=== PATIENT | female | born 2000 | race Caucasian/White ===

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

== ENCOUNTER 2021-07-11 17:32 | Emergency (ER) | payer MEDICAID, SELFPAY ==
[2021-07-11 17:33] VITALS: BP 117/75; PULSE 116; RESP 16; TEMP 37.2; O2SAT 99; BMI 18.3
[2021-07-11 18:39] LABS: Microscopic, Urine URINE MICROSCOPIC (MICROSCOPIC)
[2021-07-11 18:42] LABS: Basophils # 0.1 K/mm3 (0-0.2); Basophils % 2.3 % (0.1-2.0); Eosinophils # 0.1 K/mm3 (0.0-0.4); Eosinophils % 2.4 % (0.1-12.0); Hematocrit 40.2 % (37.0-47.0); Hemoglobin 13.1 g/dL (12.2-16.2); Lymphocytes # 1.7 K/mm3 (0.7-4.5); Lymphocytes % 30.5 % (10-50); Mean Corpuscular HGB Conc 32.7 g/dL (31.8-35.4); Mean Corpuscular Hemoglobin 28.7 pg (27.0-31.2); Mean Corpuscular Volume 87.9 fl (81-99); Mean Platelet Volume 7.8 fl (7.4-10.4); Monocytes # 0.5 K/mm3 (0.1-1.0); Monocytes % 9.7 % (1.7-9.3); Neutrophils % 55.1 % (37.0-80.0); Platelet Count 355 K/mm3 (142-424); Red Blood Count 4.58 M/mm3 (4.20-5.40); Red Cell Distribution Width 13.3 % (11.5-17.5); White Blood Count 5.4 K/mm3 (4.5-13.0)
[2021-07-11 18:43] LABS: Chloride 106 mmol/L (98-107); Potassium 3.3 mmoL/L (3.5-5.1); Sodium 139 mmol/L (136-145)
[2021-07-11 18:45] LABS: Alanine Aminotransferase 13 U/L (12-78); Aspartate Amino Transferase 24 U/L (14-36); Blood Urea Nitrogen 5 mg/dl (7-17); Creatinine Clearance Estimated 107 mL/min (50-200); Estimated Glomerular Filt Rate 127 ml/min (>60); GFR (African American) 154 ML/MIN (>60)
[2021-07-11 18:46] LABS: Albumin Level 4.6 g/dl (3.5-5.0); Albumin/Globulin Ratio 1.8 (1.1-1.8); Alkaline Phosphatase 50 U/L (38-126); Anion Gap 10.3 mEq/L (5-15); Bilirubin,Total 0.5 mg/dl (0.2-1.3); Calcium 8.9 mg/dl (8.4-10.2); Carbon Dioxide 26 mmol/L (22.0-30.0); Globulin 2.6 g/dL (1.3-3.2); Glucose 85 mg/dl (74-100); Total Protein,Serum 7.2 g/dl (6.3-8.2)
[2021-07-11 18:50] LABS: Urine Pregnancy, HCG Qual. Negative (Negative)
[2021-07-11 19:32] LABS: Appearance,Urine CLEAR (Clear); Bilirubin,Urine Negative (Negative); Blood, Urine Negative (Negative); Color,Urine YELLOW (Yellow); Glucose,Urine (UA) Negative (Negative); Ketones,Urine Negative (Negative); Leukocyte Esterase,Urine Negative (Negative); Nitrate,Urine Negative (Negative); PH,Urine 6.5 (5.0-8.5); Protein,Urine Negative (Negative); Specific Gravity, Urine <= 1.005 (1.005-1.030); Urobilinogen,Urine 0.2 EU/dl (0.2)
[2021-07-11 19:34] LABS: Squamous Epithelial Cell,Urine Occasional #/hpf (0-5); WBC,Urine Occasional #/hpf (0-3)
--- NOTE | 2021-07-11 19:41 | HMH.EDGENADL ---
ED Disposition Clinical Impression: Syncope and collapse Disposition: Home, Self-Care Condition on Discharge: Good Instructions: DI for Syncope in Adults (Fainting) Additional Instructions: Call Dr. Arvizu's office tomorrow to set up follow-up appointment. Call your bilingual social worker tomorrow to set up follow-up appointment. Return to the emergency department if worsening symptoms or fainting returns. Referrals: Alan Arvizu MD [Primary Care Provider] - - Critical Care Critical Care Time: No Attestation: On 07/11/21, the high probability of a clinically significant, sudden or life threatening deterioration of the following system(s) required my full and direct attention, intervention and personal management. The time I documented below is in addition to time spent performing reported procedures but includes the following listed in this critical care notation. Medical Decision Making - Liam Inquiry Pt receiving controlled substance: No Vital Signs: 07/11/21 17:33 Temperature 98.9 F Temperature Source Oral Pulse Rate [Left Radial] 116 H Respiratory Rate 16 Blood Pressure [Left Arm] 117/75 Blood Pressure Mean [Left Arm] 89 Blood Pressure Source [Left Arm] Automatic Cuff Blood Pressure Position [Left Arm] Sitting 02 Sat by Pulse Oximetry 99 Oxygen Delivery Method Room Air - Lab Data Lab Results 07/11/21 18:10: Urine HCG, Qual Negative 07/11/21 18:20: Urine Color Yellow, Urine Appearance Clear, Urine pH 6.5, Ur Specific Labelle <= 1.005, Urine Protein Negative, Urine Glucose (UA) Negative, Urine Ketones Negative, Urine Blood Negative, Urine Nitrate Negative, Urine Bilirubin Negative, Urine Urobilinogen 0.2, Ur Leukocyte Esterase Negative, Urine RBC None, Urine WBC Occasional, Ur Squamous Epith Cells Occasional, Urine Bacteria None 07/11/21 18:20: WBC 5.4, RBC 4.58, Hgb 13.1, Hct 40.2, MCV 87.9, MCH 28.7, MCHC 32.7, RDW 13.3, Plt Count 355, MPV 7.8, Neut % (Auto) 55.1, Lymph % (Auto) 30.5, [place] % (Auto) 9.7 H, Eos % (Auto) 2.4, Baso % (Auto) 2.3 H, Neut # (Auto) 3.0, Lymph # (Auto) 1.7, [place] # (Auto) 0.5, Eos # (Auto) 0.1, Baso # (Auto) 0.1 07/11/21 18:20: Sodium 139, Potassium 3.3 L, Chloride 106, Carbon Dioxide 26, Anion Gap 10.3, BUN 5 L, Creatinine 0.60, Estimated Creat Clear 107, Estimated GFR 127, Est GFR ( Amer) 154, Glucose 85, Calcium 8.9, Total Bilirubin 0.5, AST 24, ALT 13, Alkaline Phosphatase 50, Total Protein 7.2, Albumin 4.6, Globulin 2.6, Albumin/Globulin Ratio 1.8 Result diagrams: 07/11/21 18:20 07/11/21 18:20 Orders (Tests/Meds): ED MEDICATIONS Generic Name Dose Route Start Last Admin Trade Name Freq PRN Reason Stop Dose Admin Sodium Chloride 10 ml 07/11/21 18:29 Sodium Chloride 0.9% 10ml Flush Syringe IV 08/10/21 18:28 NEEDED PRN Maintain IV Site Discontinued Medications Generic Name Dose Route Start Last Admin Trade Name Freq PRN Reason Stop Dose Admin Sodium Chloride 1,000 mls @ 999 mls/hr 07/11/21 18:32 07/11/21 18:34 Sod Chlor 0.9% 1000ml Bag IV 07/11/21 19:32 999 mls/hr .Q1H1M ONE Administration - ECG Data Tracing #1 EKG interpreted by Leno Jorge MD: Rhythm: sinus with sinus arrhythmia Rate: 83 Watson: normal Ectopy: none Conduction: normal ST Segment Changes: none T Wave Changes: none Q Waves: none No evidence of acute ischemia or injury - Physician Consults Physician Consulted: Nolberto Time: 20:00 Reason -: Pt condition Comment/Response: Discharge, to follow-up in office General Adult HPI - General Chief complaint: Syncope Stated complaint: Fainted , left arm tingling Time Seen by Provider: 07/11/21 19:42 Mode of Arrival: Ambulatory Limitations: No Limitations Description of Symptoms (Recalled from ER Triage Doc. by RN): Pt c/o vaginal bleeding x40 days after beginning Depo 2 months ago. Advises that she passed out this afternoon while walking to the bathroom. Pt states that her knees buckled and
--- NOTE | 2021-07-11 20:03 | ECG_ITS ---
APPROVED REPORT Exam: Resting ECG HR:83 bpm ECG Measurements Heart Rate 83 AXES ME 151 P 62 QRSd 88 QRS 81 QT 347 T 3 QTc 387 Conclusion SINUS RHYTHM WITH SINUS ARRHYTHMIA NONSPECIFIC T-WAVE ABNORMALITY BORDERLINE ECG UNCONFIRMED REPORT Electronically signed by : Alan Arvizu MD 07/12/2021 16:00:26
[2021-07-11 20:24] VITALS: BP 120/74; PULSE 110; RESP 16; TEMP 37.2; O2SAT 99
== END 2021-07-11 20:27 | disposition home or self-care (01) ==
PROVIDERS: Emergency Provider Emergency Medicine; PCP Internal Medicine Adolescent Medicine
DX: R55 Syncope and collapse (principal); N93.8 Other specified abnormal uterine and vaginal bleeding
CPT/HCPCS: 80053; 81001; 81025; 85025; 93005; 96360; 96365; 99283

== ENCOUNTER 2022-07-06 09:42 | Emergency (ER) | payer MEDICAID, SELFPAY ==
--- NOTE | 2022-07-06 09:59 | EXP.UTC ---
Discharge Plan Disposition Patient Disposition: Home, Self-Care Condition: Good Prescriptions Prescriptions: New azithromycin [Zithromax] 250 mg tablet 250 mg PO UD DOSE PK Qty: 6 0RF Rx Instructions: Take two (2) tablets today, then one (1) tablet days #2 thru #5 methylprednisolone 4 mg Tablets,Dose Pack 4 mg PO DIRECTED Qty: 21 0RF fjokhzzlhidonqr-pnclgikqw-UO [Bromfed DM] 2-30-10 mg/5 mL Syrup 5 ml PO Q6H PRN (Reason: Cough) Qty: 240 0RF Referrals Follow up/Referrals: Alan Arvizu MD [Primary Care Provider] - See instructions Activity Restrictions/Add. Instructions Additional Instructions/Restrictions: Drink plenty of fluids. Take tylenol or ibuprofen for pain or fever. Take the medications as directed. Follow up with your regular doctor. GO TO THE ER FOR ANY WORSENING SYMPTOMS Clinical Impressions Clinical Impression: Otitis media, Sinusitis Instructions Patient Instructions: Middle Ear Infection, DI for Sinusitis, Methylprednisolone, Azithromycin Discharge ED Provider: Haja Angel [facility] General Stated complaint: cough,headache,ear pain,low grade fever Time Seen by Provider: 07/06/22 09:59 History of Present Illness Provider Complaint: She states that for the past 4 days she has had worsening bilateral ear pain, sinus congestion, cough, and sore throat. Related Data Previous Rx's Medication Instructions Recorded azithromycin 250 mg tablet 250 mg PO UD DOSE PK #6 tabs 07/06/22 (Zithromax) vilfncdupoubwoe-kbxpkxftiaqkdxk-[place] 5 ml PO Q6H PRN Cough #240 mL 07/06/22 2 mg-30 mg-10 mg/5 mL oral syrup (Bromfed DM) methylprednisolone 4 mg tablets in 4 mg PO DIRECTED #21 tabs 07/06/22 a dose pack Allergies Allergy/AdvReac Type Severity Reaction Status Date / Time Penicillins [PENICILLINS] Allergy Unknown Verified 07/06/22 10:07 Sulfa (Sulfonamide Allergy Unknown Verified 07/06/22 10:07 Antibiotics) [SULFA (SULFONAMIDE ANTIBIOTICS)] [facility] Disclaimer: The information contained in this section may have been updated after the patient was seen, as this information can be updated by other users. Social History Smoking Status: Never smoker alcohol intake: never current occupational status: employed Travel in the last 8 weeks: None ROS Obtained: Yes All systems reviewed & no additional complaints except as documented Constitutional Constitutional: Reports chills and Reports fever(s) Eyes Eyes: Denies eye discharge ENT Ears, Nose, Mouth, and Throat: Reports as per HPI Cardiovascular Cardiovascular: Denies chest pain Respiratory Respiratory: Denies shortness of breath, Denies chest congestion, Reports cough, Denies stridor and Denies wheezing Gastrointestinal Gastrointestingal: Reports nausea; Denies abdominal pain, constipation, cramping, diarrhea or vomiting Musculoskeletal Musculoskeletal: Denies arthralgias Integumentary/Breasts Skin/Breast: Denies rash Neurologic Neurologic: Denies paresthesias Allergic/Immunologic Allergic/Immunologic: Denies wheezing Physical Exam General General appearance: alert and in no apparent distress Head Head exam: atraumatic, normocephalic and normal inspection Eye Eye exam: Present normal appearance; Absent PERRL or EOMI ENT ENT exam: Present mucous membranes moist and normal external ear exam Expanded ENT Exam TM/Canal exam: Bilateral TM: erythema, bulging and effusion Nose exam: Absent sinus tenderness Nasal speculum exam: Bilateral: normal Mouth exam: Present normal external inspection and other; Absent drooling Teeth exam: Present normal inspection Throat exam: Present tonsillar erythema and tonsillomegaly Neck Neck exam: Present normal inspection, full ROM and trachea midline; Absent tenderness, meningismus or lymphadenopathy Chest Chest inspection: Present normal inspection and symmetric chest wall rise; Absent ten
[2022-07-06 10:00] VITALS: BP 128/98; PULSE 127; RESP 20; TEMP 37; O2SAT 95; BMI 18.3
[2022-07-06 10:11] LABS: UTC Strep Screen (Rapid) Negative (Negative)
[2022-07-06 11:26] VITALS: BP 128/98; PULSE 127; RESP 20; TEMP 37; O2SAT 95
== END 2022-07-06 11:26 | disposition home or self-care (01) ==
PROVIDERS: Emergency Provider Nurse Practitioner Family; PCP Internal Medicine Adolescent Medicine
DX: J01.90 Acute sinusitis, unspecified (principal); H66.93 Otitis media, unspecified, bilateral; R50.9 Fever, unspecified
CPT/HCPCS: 87880; 99212; 99214; G0463

== ENCOUNTER 2022-07-09 16:12 | Emergency (ER) | payer MEDICAID, SELFPAY ==
[2022-07-09 16:25] VITALS: BP 127/85; PULSE 102; RESP 20; TEMP 37; O2SAT 97; BMI 17.7
--- NOTE | 2022-07-09 16:48 | EXP.UTC ---
Discharge Plan Disposition Patient Disposition: Home, Self-Care Condition: Good Prescriptions Prescriptions: New ofloxacin 0.3 % drops 10 drp otic (ear) BID 14 Days Qty: 10 0RF Rx Instructions: both ears promethazine-DM 6.25-15 mg/5 mL syrup 5 ml PO Q6H PRN (Reason: cough) Qty: 118 0RF Referrals Follow up/Referrals: Alan Arvizu MD [Primary Care Provider] - See instructions Activity Restrictions/Add. Instructions Additional Instructions/Restrictions: *Monitor Temp, Over the counter Motrin or Tylenol as directed/as needed Tylenol every 4 hours and Motrin every 6 hours (as long as your family doctor has told you that you can take it) for fever or pain. and straight to ER if unable to lower temp less than 101.0 after medication given *Warm salt water gargles may help to soothe the throat *Throat Lozenges? *Warm fluids like tea with honey may help to soothe the throat? *Sleep elevated *Humidifier/Vaporizer Finish antibiotics that you was prescribed and start ear drops Follow up IMMEDIATELY for new or worsening symptoms or no Noticeable improvement over the next 48-72 hours. 911 for difficulty breathing or swallowing You were tested for today for ?Upper Respiratory Panel with COVID19 your test result should be back in the next 24-48 hours, you may check your results on the [facility] [employer] [facility] Clinical Impressions Clinical Impression: Otitis media Qualifiers: Otitis media type: unspecified Laterality: bilateral Qualified Code(s): H66.93 - Otitis media, unspecified, bilateral Instructions Patient Instructions: DI for Nasal Congestion, Ofloxacin Otic Discharge [place] [facility] [place] General Stated complaint: cough ear pain Mode of Arrival: Ambulatory Source of Information: Patient Limitations: No Limitations Time Seen by Provider: 07/09/22 16:48 Description of Symptoms (Recalled from Triage Doc. by RN): bilateral ear pain, cough, was exposed to adenovirus HEENT Symptoms (Recalled from RN notes): Yes Resp Symptoms (Recalled from RN notes): No Skin Symptoms (Recalled from RN notes): No MS Symptoms (Recalled from RN notes): No Functional Status (Recalled from RN notes): n/a History of Present Illness Provider Complaint: Patient states that she was recently treated for bilateral ear infections States that she has finished all her medication but still having bilateral ear pain and pressure cough and nasal congestion States that she doesnt feel like the antibiotics have helped and she is not feeling any better States that she has been around family with adenovirus but not having he same symptoms that they are Related Data Previous Rx's Medication Instructions Recorded ofloxacin 0.3 % ear drops 10 drp otic (ear) BID 14 days #10 07/09/22 mL promethazine-DM 6.25 mg-15 mg/5 mL 5 ml PO Q6H PRN cough #118 mL 07/09/22 oral syrup Allergies Allergy/AdvReac Type Severity Reaction Status Date / Time Penicillins [PENICILLINS] Allergy Unknown Verified 07/09/22 16:39 Sulfa (Sulfonamide Allergy Unknown Verified 07/09/22 16:39 Antibiotics) [SULFA (SULFONAMIDE ANTIBIOTICS)] Worker's Comp Is this a Worker's Comp case?: No [facility] Disclaimer: The information contained in this section may have been updated after the patient was seen, as this information can be updated by other users. Social History Smoking Status: Never smoker alcohol intake: never current occupational status: employed Travel in the last 8 weeks: None ROS Obtained: Yes All systems reviewed & no additional complaints except as documented and Yes Systems reviewed as appropriate & no additional complaints except as documented Constitutional Constitutional: Reports system reviewed and no additional complaints, except as documented and Reports as per HPI ENT Ears, Nose, Mouth, and Throat: Reports system reviewed and no add
[2022-07-09 17:27] LABS: Adenovirus,PCR Not Detected (NotDetected); Bordetella Pertussis Not Detected (NotDetected); Chlamydophila Pneumoniae, PCR Not Detected (NotDetected); Coronavirus 19, PCR Not Detected (NotDetected); Coronavirus 229E Not Detected (NotDetected); Coronavirus NL63 Not Detected (NotDetected); Coronavirus OC43 Not Detected (NotDetected); Coronovirus HKU1,PCR Not Detected (NotDetected); Human Metapneumovirus Not Detected (NotDetected); Influenza A, PCR Not Detected (NotDetected); Influenza AH1, 2009 Not Detected (NotDetected); Influenza AH1, PCR Not Detected (NotDetected); Influenza AH3,PCR Not Detected (NotDetected); Influenza B, PCR Not Detected (NotDetected); Mycoplasma Pneumoniae, PCR Not Detected (NotDetected); Parainfluenza 1, PCR Not Detected (NotDetected); Parainfluenza 2, PCR Not Detected (NotDetected); Parainfluenza 3, PCR Not Detected (NotDetected); Parainfluenza 4, PCR Not Detected (NotDetected); Respiratory Syncytial Virus Not Detected (NotDetected); Rhinovirus/Enterovirus Not Detected (NotDetected)
[2022-07-09 17:29] VITALS: BP 127/85; PULSE 102; RESP 20; TEMP 37; O2SAT 97
== END 2022-07-09 17:20 | disposition home or self-care (01) ==
PROVIDERS: Emergency Provider Nurse Practitioner; PCP Internal Medicine Adolescent Medicine
DX: H66.93 Otitis media, unspecified, bilateral (principal); R05.1 Acute cough; Z20.822 Contact with and (suspected) exposure to COVID-19
CPT/HCPCS: 87581; 87632; 87798; 99212; 99214; C9803; G0463; U0003; U0005

== ENCOUNTER 2023-06-19 10:47 | Outpatient (CLI) | payer OTHER, SELFPAY ==
--- NOTE | 2023-06-19 10:52 | CA_ITS ---
APPROVED REPORT EXAM: Comprehensive 2D, Doppler, and color-flow Echocardiogram Shop Repairer: Ryanne Cifuentes CRT Ht: 5 ft 2 in Wt: 102lbs BSA: 1.44 BP: 128/70 mmHg Indications: tachycardia, smoker 2D Dimensions Left Atrium 2.66 cm LVEF (Sharp's) 56.20 % LVOT 1.73 cm (M/F) 1.5-2.5 LV Volume 72.10 mL LA Volume 17.80 mL LA Volume Index 12.40 mL/m2 (M/F) 16-34 EF AP4 50.80 % EF AP2 56.4 % EF BP 56.2 % GL Strain -21.6 % M-Mode Dimensions RVDd 2.73 cm (0.9-2.6) LVDd 3.41 cm (3.5-5.7) Ao Diam 2.52 cm (2.0-3.7) LVDs 2.36 cm (3.5-5.7) IVSd 0.93 cm (0.6-1.1) PWd 0.86 cm (0.6-1.1) EF (Teich) 59.60% FS 30.80% EDV (Teich) 47.80 mL TAPSE 2.10 (<1.7) ESV (Teich) 19.30 mL LV Diastology E Decel Time 158 (160-240 msec) E/A Ratio 2.25 MED E' 13.3 (>= 7 cm/sec) MED A' 8.40 cm/s E'/MED E' Ratio 7.89 (<= 14) LAT E' 19.3 (>= 10 cm/sec) LAT A' 10.30 cm/s E/LAT E' Ratio 5.44 (<= 14) Aortic Valve AoV Peak Piter. 113.0 (50-130 cm/s) AO Peak GR. 5.10 mmHg Mitral Valve MV E Max Piter. 105.0 (40-130 cm/s) MV A Velocity 47.0 (40-130 cm/s) E/A Ratio 2.25 MV Decel. Time 158 (160-240 ms) Tricuspid Valve TR P. Velocity 240.00 cm/s RAP Estimate 10.00 mmHg RVSP 33.10 mmHg Left Ventricle The left ventricle is normal size. The left ventricular systolic function is normal. The left ventricular ejection fraction is within the normal range. There is normal left ventricular wall thickness. There is normal LV segmental wall motion. The left ventricular diastolic function is normal. LVEF is 55%. Right Ventricle The right ventricle is normal size. The right ventricular systolic function is normal. Atria The left atrium size is normal. The right atrium size is normal. There is no Doppler evidence of interatrial shunt. Aortic Valve The aortic valve opens well. There is no aortic valvular stenosis. No aortic regurgitation is present. Mitral Valve The mitral valve is normal in structure. No evidence of mitral valve stenosis. There is no mitral valve regurgitation noted. Tricuspid Valve The tricuspid valve leaflets are thin and pliable. Trace tricuspid regurgitation. There is insufficient TR jet to estimate RVSP. Pulmonic Valve The pulmonary valve is normal in structure. Trace pulmonic regurgitation. Great Vessels The aortic root is normal in size. The ascending aorta is normal in size. IVC is normal in size and collapses >50% with inspiration. Pericardium There is no pericardial effusion. Other Information Study Quality: Fair Conclusion Normal biventricular systolic function. No significant valvular stenosis or regurgitation. Electronically signed by : Sugar Neumann MD 06/22/2023 00:59:49
== END 2023-06-19 23:59 ==
LOC: RT 10:49
PROVIDERS: PCP Internal Medicine Adolescent Medicine; Visit Provider Internal Medicine Adolescent Medicine
DX: R00.0 Tachycardia, unspecified (principal); R94.31 Abnormal electrocardiogram [ECG] [EKG]
CPT/HCPCS: 93306

== ENCOUNTER 2024-01-28 19:03 | Emergency (ER) | payer OTHER, SELFPAY ==
[2024-01-28 20:03] VITALS: BP 136/87; PULSE 117; RESP 20; TEMP 36.9; O2SAT 99; BMI 19.0
--- NOTE | 2024-01-28 20:06 | EXP.UTC ---
Discharge Plan Disposition Patient Disposition: Home, Self-Care Condition: Good Prescriptions Prescriptions: New zjummosnrizskkl-oanijtikl-CH [Bromfed DM] 2-30-10 mg/5 mL syrup 10 ml PO Q6H PRN (Reason: cold symptoms) Qty: 200 0RF azithromycin [Zithromax Z-Gregory] 250 mg tablet See Rx Instructions .ROUTE .COMPLEX 5 Days Qty: 6 0RF Rx Instructions: For 250 mg dose pack: take 500 mg today (day 1), then 250 mg for 4 days (days 2-5) methylprednisolone [Medrol (Gregory)] 4 mg tablets,dose pack See Rx Instructions .Route .COMPLEX 6 Days Qty: 21 0RF Rx Instructions: taper pack; ciprofloxacin-dexamethasone 0.3-0.1 % drops,suspension 4 drp otic (ear) BID 7 Days Qty: 7.5 0RF Rx Instructions: apply in right ear as directed fluticasone propionate [Flonase Allergy Relief] 50 mcg/actuation spray,suspension 1 - 2 spray intranasal DAILY Qty: 16 0RF Rx Instructions: administer into each nostril daily Referrals Follow up/Referrals: Alan Arvizu MD [Primary Care Provider] - See instructions Activity Restrictions/Add. Instructions Additional Instructions/Restrictions: Take medication as prescribed Use ear drops as prescribed Use flonase as directed Make sure to drink plenty fluids Follow up with your Family Doctor if no improvement or any worsening of symptoms Return if needed Clinical Impressions Clinical Impression: Otitis media Qualifiers: Otitis media type: unspecified Laterality: right Qualified Code(s): H66.91 - Otitis media, unspecified, right ear Instructions Patient Instructions: DI for Sinusitis, Middle Ear Infection Print Language Print Language: Slovenian Discharge ED Provider: Odalys Miles [facility] General Stated complaint: sore throat, cough, ear pain, diarrhea Mode of Arrival: Ambulatory Source of Information: Patient Time Seen by Provider: 01/28/24 20:06 Description of Symptoms (Recalled from Triage Doc. by RN): RIGHT EAR ACHE/INFECTION, N/D, RUNNY NOSE HEENT Symptoms (Recalled from RN notes): Yes Resp Symptoms (Recalled from RN notes): Yes Skin Symptoms (Recalled from RN notes): No MS Symptoms (Recalled from RN notes): No Functional Status (Recalled from RN notes): WNL History of Present Illness Provider Complaint: Patient states that she has been having sore throat, cough, and pain and pressure in her right ear States that she feels like she may have a bad ear infection States today the pain in her ear was worse so she came in to get it checked Related Data Previous Rx's ?Medication ?Instructions ?Recorded azithromycin 250 mg tablet See Rx Instructions PO .COMPLEX 5 01/28/24 (Zithromax Z-Gregory) days #6 tabs ugmaanvoicrfdly-bfzrhsscnzxoomh-DU 10 ml PO Q6H PRN cold symptoms 01/28/24 2 mg-30 mg-10 mg/5 mL oral syrup #200 mL (Bromfed DM) ciprofloxacin 0.3 %-dexamethasone 4 drp otic (ear) BID 7 days #7.5 mL 01/28/24 0.1 % ear drops,suspension fluticasone propionate 50 1 - 2 spray intranasal DAILY #16 01/28/24 mcg/actuation nasal grams spray,suspension (Flonase Allergy Relief) methylprednisolone 4 mg tablets in See Rx Instructions .Route 01/28/24 a dose pack (Medrol (Gregory)) .COMPLEX 6 days #21 tabs Allergies Allergy/AdvReac Type Severity Reaction Status Date / Time Penicillins [PENICILLINS] Allergy Unknown Verified 03/17/23 11:25 Sulfa (Sulfonamide Allergy Unknown Verified 03/17/23 11:25 Antibiotics) [SULFA (SULFONAMIDE ANTIBIOTICS)] Worker's Comp Is this a Worker's Comp case?: No [facility] Disclaimer: The information contained in this section may have been updated after the patient was seen, as this information can be updated by other users. Medical History Abnormal uterine bleeding Dysmenorrhea Menorrhagia Tobacco user Surgical History Hx of tonsillectomy 01/17/06 Family History Other Cancer Diabetes Hypertension Thyroid disorder Social History Smoking Status: Current every day smoker tobacco type: e-cigarettes alcohol intake: current alcohol intake frequency: holidays/special occasions only substance use type: denies use current occupational status: unemployed Travel in the last 8 weeks: None ROS Obtained: Yes All systems reviewed & no additional complaints except as documented and Yes Systems reviewed as appropriate & no additional complaints except as documented Constitutional Constitutional: Reports system reviewed and no additional complaints, except as documented, Reports as per HPI and Reports headache(s) ENT Ears, Nose, Mouth, and Throat: Reports system reviewed and no additional complaints, except as documented, Reports as per HPI, Reports otalgia, Reports headache(s), Reports nasal congestion, Reports sinus pressure and Reports sore throat Cardiovascular Cardiovascular: Reports system reviewed and no additional complaints, except as documented and Reports as per HPI Respiratory Respiratory: Reports system reviewed and no additional complaints, except as documented and Reports as per HPI Gastrointestinal Gastrointestingal: Reports system reviewed and no additional complaints, except as documented and as per HPI Neurologic Neurologic: Reports headache(s) Physical Exam General General appearance: alert and in no apparent distress ENT ENT exam: Present mucous membranes moist Expanded ENT Exam TM/Canal exam: Right TM: erythema and loss of landmarks Nose exam: Present sinus tenderness Throat exam: Present other (Pharygeal erythema noted with PND) Respiratory Respiratory exam: Present normal lung sounds bilaterally; Absent respiratory distress or wheezes Cardiovascular Cardiovascular exam: Present regular rate, normal rhythm and normal heart sounds Neurological Exam Neurological exam: Present alert, oriented X3 and normal gait Medical Decision Making Medical Records Screening: Per USPSTF and CDC recommendations, given the prevalence of disease in our region, it is our hospital?s policy to screen for HIV and viral Hepatitis for all patients aged 18 and over and those with ongoing risk factors. Liam Inquiry Pt receiving controlled substance: No Liam was queried for this patient: No Vital Signs: 01/28/24 20:03 Temperature 98.4 F Temperature Source Oral Pulse Rate [Left Radial] 117 H Respiratory Rate 20 Blood Pressure [Left Arm] 136/87 Blood Pressure Mean [Left Arm] 103 02 Sat by Pulse Oximetry 99 Medical Decision Narrative: Patient denies chance of , patient states that she is allergic to PCN and has never taken Cephlasporins, states she has take azithromycin in the past without complications or reactions
[2024-01-28 20:21] VITALS: BP 136/87; PULSE 117; RESP 20; TEMP 36.9
== END 2024-01-28 20:26 | disposition home or self-care (01) ==
PROVIDERS: Emergency Provider Nurse Practitioner; PCP Internal Medicine Adolescent Medicine
DX: H66.91 Otitis media, unspecified, right ear (principal); J02.9 Acute pharyngitis, unspecified; R05.9 Cough, unspecified; R19.7 Diarrhea, unspecified; H92.01 Otalgia, right ear
CPT/HCPCS: 99212; G0381